=== PATIENT | female | born 1940 | race Caucasian/White ===

== ENCOUNTER → 2017-12-02 13:09 | Outpatient (CLI) | payer MEDICARE, BC ==
[2017-12-02 15:35] LABS: ANION GAP 15.5 mmol/L (8-16); CALCIUM 8.7 mg/dL (8.5-10.1); CARBON DIOXIDE 25.8 mmol/L (21.0-32.0); CREATININE - SERUM 1.1 mg/dL (0.6-1.3); POTASSIUM - SERUM 4.3 mmol/L (3.5-5.1)
== END | disposition home or self-care (01) ==
LOC: D.LABREF 13:09
PROVIDERS: Family Medicine
DX: I50.32 Chronic diastolic (congestive) heart failure (principal)